=== PATIENT | female | born 1950 | race African-American/Black ===

== ENCOUNTER 2022-07-27 11:56 | Emergency (ER) | payer MEDICARE, MEDICAID ==
[~2022-07-27] VITALS: Ht 170.2 cm; Wt 68.0 kg
[2022-07-27 12:01] VITALS: BP 205/103
[2022-07-27] MEDS ORDERED: ASPIRIN 81MG TABLET PO ONE (12:15)
[2022-07-27 13:56] LABS: CHLORIDE 108 mEq/L (98-107)
[2022-07-27 13:59] LABS: BASOPHILS % 0.5 % (0.0-2.0); EOSINOPHILS % 0.9 % (0.0-5.0); HEMATOCRIT. 35.9 % (36.0-48.0); HEMOGLOBIN. 12.2 g/dL (12.0-16.0); LYMPHOCYTES % 29.4 % (20.0-50.0); MEAN CORPUSCULAR HEMOGLOBIN 32.1 pg (28.0-32.0); MEAN CORPUSCULAR VOLUME 94.8 fL (81.0-99.0); MEAN PLATELET VOLUME 7.7 fl (7.4-10.4); MONOCYTES % 7.3 % (2.0-8.0); NEUTROPHILS % 61.9 % (40.0-76.0); PLATELET 208 x1000/uL (130-400); RED BLOOD CELL COUNT 3.79 mill/uL (4.2-5.4); RED CELL DISTRIBUTION WIDTH 14.7 % (11.6-14.6)
== END 2022-07-27 15:50 | disposition left against medical advice (07) ==
LOC: ER 12:34
DX: I24.9 Acute ischemic heart disease, unspecified (principal); I10 Essential (primary) hypertension; I11.0 Hypertensive heart disease with heart failure; I50.9 Heart failure, unspecified; J45.909 Unspecified asthma, uncomplicated; Z98.890 Other specified postprocedural states
CPT/HCPCS: 36415; 71045; 80053; 83880; 84484; 85025; 93005; 99285

== ENCOUNTER → 2023-01-07 | Day surgery (SDC) | payer MEDICARE, OTHER ==
[~2023-01-07] VITALS: Ht 170.2 cm; Wt 77.6 kg
[~2023-01-07] MED LIST: ACETAMINOPHEN 325MG TABLET PO PRN; ATOR20TA65 PO; ATROPINE SULFATE 1MG/10ML SYR IV PRN; ATROV IH; BUDE6HFA IH; DIPHENHYDRAMINE 50MG/ML VIAL ONE; DOXA-15 PO; FAMOTIDINE 20MG/2ML VIAL IV ONE; FENTANYL CITRATE/PF 50MCG/ML 2ML VIAL ONE; FURO40TA5 PO; HEPARIN 1000 UNITS/ML 10ML ONE; HYDRALAZINE 20MG/ML VIAL ONE; IODIXANOL 320MG/ML 100 ML BOTTLE IV ONE; IPRA3AMP9 HHN; IPRA4AER IH; LIDOCAINE HCL 1% 20ML VIAL (Pyxis) INJ ONE; LOSA100T33 PO; LOSA50TA41 PO; METH-372 PO; METHYLPREDNISOLONE SOD SUCC 125MG/2ML (ACT-O-VIAL) ONE; MIDAZOLAM HCL 2 MG/2 ML VIAL ONE; NITR0.4T49 SL; OXYC-582 PO; RANO500T6 PO; RIVA20TA PO; VERAPAMIL HCL 2.5 MG/1 ML 2ML VIAL IV ONE
[2023-01-07 07:31] LABS: BASOPHILS % 0.9 % (0.0-2.0); EOSINOPHILS % 3.2 % (0.0-5.0); HEMATOCRIT. 37.3 % (36.0-48.0); HEMOGLOBIN. 12.4 g/dL (12.0-16.0); MEAN CORPUSCULAR HEMOGLOBIN 31.1 pg (28.0-32.0); MEAN CORPUSCULAR HGB CONC 33.3 g/dL (31.0-37.0); MEAN CORPUSCULAR VOLUME 93.4 fL (81.0-99.0); MEAN PLATELET VOLUME 7.9 fl (7.4-10.4); MONOCYTES % 8.5 % (2.0-8.0); NEUTROPHILS % 52.4 % (40.0-76.0); PLATELET 190 x1000/uL (130-400); RED BLOOD CELL COUNT 3.99 mill/uL (4.2-5.4); RED CELL DISTRIBUTION WIDTH 14.4 % (11.6-14.6); WHITE BLOOD COUNT 3.8 x1000/uL (4.5-11.0)
[2023-01-07 08:26] LABS: CALCIUM 8.3 mg/dL (8.5-10.1); CARBON DIOXIDE 31 mEq/L (21-32); CHLORIDE 108 mEq/L (98-107); GLUCOSE 87 mg/dL (70-105); POTASSIUM 3.7 mEq/L (3.5-5.1); SODIUM 141 mEq/L (136-145); UREA NITROGEN BLOOD 14 mg/dL (7-21)
== END | disposition home or self-care (01) ==
LOC: CCL 05:39
PROVIDERS: ATTEND Internal Medicine
DX: I25.110 Atherosclerotic heart disease of native coronary artery with unstable angina pectoris (principal); I27.21 Secondary pulmonary arterial hypertension; J44.9 Chronic obstructive pulmonary disease, unspecified; R94.39 Abnormal result of other cardiovascular function study; Z88.1 Allergy status to other antibiotic agents; Z91.013 Allergy to seafood; Z79.899 Other long term (current) drug therapy; Z98.890 Other specified postprocedural states
CPT/HCPCS: 80048; 85025; 36415; 93460; 93005; C1893; C1760 ×2; C1887 ×2; C1769; J3010; Q9967; J1200; J3490 ×3; J0360; J2930; J2250; J1644; Z7610 ×7; 99152; 99153; G0500

== ENCOUNTER 2025-02-10 20:53 | Inpatient (IN) | payer MEDICARE, MEDICAID ==
[~2025-02-10] VITALS: Ht 152.4 cm; Wt 91.7 kg
[~2025-02-10 20:53] MED LIST changes: -ACETAMINOPHEN 325MG TABLET PO PRN; -ATROPINE SULFATE 1MG/10ML SYR IV PRN; -DIPHENHYDRAMINE 50MG/ML VIAL ONE; -FAMOTIDINE 20MG/2ML VIAL IV ONE; -FENTANYL CITRATE/PF 50MCG/ML 2ML VIAL ONE; -HEPARIN 1000 UNITS/ML 10ML ONE; -HYDRALAZINE 20MG/ML VIAL ONE; -IODIXANOL 320MG/ML 100 ML BOTTLE IV ONE; -LIDOCAINE HCL 1% 20ML VIAL (Pyxis) INJ ONE; -METHYLPREDNISOLONE SOD SUCC 125MG/2ML (ACT-O-VIAL) ONE; -MIDAZOLAM HCL 2 MG/2 ML VIAL ONE; -VERAPAMIL HCL 2.5 MG/1 ML 2ML VIAL IV ONE
[2025-02-10 20:59] VITALS: RESP 21
[2025-02-10] MEDS: FUROSEMIDE 40MG/4ML VIAL IV ONE (21:16)
[2025-02-10] MEDS: NITROGLYCERIN 50MG PREMIX 250 ML IV ONE (21:26)
[2025-02-10 21:28] LABS: BASOPHILS % 0.7 % (0.0-2.0); EOSINOPHILS % 0.0 % (0.0-5.0); HEMATOCRIT. 41.7 % (36.0-48.0); HEMOGLOBIN. 13.8 g/dL (12.0-16.0); LYMPHOCYTES % 10.6 % (20.0-50.0); MEAN PLATELET VOLUME 7.9 fl (7.4-10.4); MONOCYTES % 2.3 % (2.0-8.0); NEUTROPHILS % 86.4 % (40.0-76.0); PLATELET 265 x1000/uL (130-400); RED BLOOD CELL COUNT 4.38 mill/uL (4.2-5.4); RED CELL DISTRIBUTION WIDTH 14.7 % (11.6-14.6)
[2025-02-10 21:40] LABS: TROPONIN I HIGH SENSITIVITY 11 ng/L (3.0-34)
[2025-02-10 21:41] LABS: CREATININE 1.1 mg/dL (0.6-1.0)
[2025-02-10 21:42] LABS: UREA NITROGEN BLOOD 17 mg/dL (9-23)
[2025-02-10 21:43] LABS: ASPARTATE AMINOTRANSFERASE 16 IU/L (<34); BILIRUBIN DIRECT < 0.1 mg/dL (<=3.0)
[2025-02-10 21:44] LABS: BILIRUBIN TOTAL 0.3 mg/dL (0.1-1.0); PROTEIN TOTAL 7.8 g/dL (6.0-8.3)
[2025-02-10] MEDS ORDERED: ALBUTEROL (0.083%) 2.5MG/3ML NEB HHN SCH (22:00)
[2025-02-10] MEDS ORDERED: IPRATROPIUM BROMIDE (0.02%) 0.5MG/2.5ML NEB HHN SCH (22:00)
[2025-02-10 22:06] LABS: BG BASE EXCESS -0.2 mmol/L (-2.0-3.0); BG CARBOXYHEMOGLOBIN 2.1 % (0.5-1.5); BG DEOXYHEMOGLOBIN 0.4 % (0.0-5.0); BG FRACTION INSPIRED OXYGEN 60; BG HCO3 ACT 25.3 mmol/L (21.0-28.0); BG METHEMOGLOBIN 0.0 % (0.5-1.5); BG OXYGEN SATURATION 99.6 % (94.0-98.0); BG OXYHEMOGLOBIN 97.5 % (94.0-98.0); BG PCO2 44.6 mmHg (32.0-45.0); BG PH 7.372 (7.350-7.450); BG PO2 225.4 mmHg (83.0-108.0); BG SAMPLE SITE RIGHT BRACHIAL; BG TOTAL HEMOGLOBIN 13.8 g/dL (12.0-16.0); BG VENT MODE MASK - BIPAP; BG VENT RATE 20.0 set
[2025-02-10] MEDS: PIPERACILLIN/TAZO 3.375G/50ML 50 ML IV ONE (22:06)
[2025-02-10] MEDS: SODIUM CHLORIDE 0.9% 250 ML IV ONE (22:30)
[2025-02-10] MEDS: DEXAMETHASONE 10 MG/ML VIAL IV ONE (22:31)
[2025-02-10] MEDS: VANCOMYCIN 1G PREMIX 200 ML IV ONE (22:31)
[2025-02-10] MEDS ORDERED: MAGNESIUM/ALUMINUM HYDROXIDE/SIMETHICONE 30ML UDC PO PRN (23:30)
[2025-02-10] MEDS ORDERED: HYDROCODONE/ACETAMINOPHEN 5/325MG TABLET PO PRN (23:30)
[2025-02-10] MEDS ORDERED: CLONIDINE 0.1MG TABLET PO PRN (23:30)
[2025-02-10] MEDS: ENALAPRIL 1.25MG/ML VIAL 1ML IV NR (23:30)
[2025-02-10] MEDS ORDERED: ONDANSETRON HCL 4MG/2ML INJ IV PRN (23:30)
[2025-02-10] MEDS ORDERED: DEXTROSE 50% WATER 50ML SYRINGE IV PRN (23:30)
[2025-02-10] MEDS ORDERED: AZITHROMYCIN 500MG/250ML 250 ML IV SCH (23:30)
[2025-02-11] VITALS (16 sets, daily range): BP systolic 103–160; BP diastolic 69–93; PULSE 65–92; RESP 12–24; TEMP 36.2–36.9184; O2SAT 98–100
[2025-02-11] MEDS ORDERED: CEFTRIAXONE 1GM/50ML 50 ML IV SCH
[2025-02-11 02:02] LABS: INR 0.9
[2025-02-11 02:13] LABS: TROPONIN I HIGH SENSITIVITY 56 ng/L (3.0-34)
[2025-02-11] MEDS: METHYLPREDNISOLONE SOD SUCC 40MG/ML (ACT-O-VIAL) IV SCH (02:48)
[2025-02-11] MEDS: AZITHROMYCIN 500MG/250ML 250 ML IV SCH (02:48)
[2025-02-11] MEDS: FUROSEMIDE 40MG/4ML VIAL IVP NR (02:49)
[2025-02-11 03:36] LABS: CLARITY URINE CLEAR (CLEAR); COLOR URINE YELLOW (YELLOW); GLUCOSE URINE NEGATIVE (NEGATIVE); KETONES URINE NEGATIVE (NEGATIVE); LEUKOCYTE ESTERASE URINE TRACE (NEGATIVE); NITRITE URINE NEGATIVE (NEGATIVE); OCCULT BLOOD URINE TRACE (NEGATIVE); PH URINE 5.5 (4.5-8.0); PROTEIN URINE NEGATIVE (NEGATIVE); SPECIFIC GRAVITY URINE 1.009 (1.005-1.030); UROBILINOGEN URINE 0.2 E.U./dL (0.2-1.0)
[2025-02-11 04:02] LABS: BACTERIA URINE TRACE; SQUAMOUS EPITHELIAL CELL URINE FEW /lpf (RARE/1+)
[2025-02-11] MEDS: IPRATROPIUM/ALBUTEROL 0.5-3(2.5)MG/3ML NEB NEB SCH (04:52)
[2025-02-11 05:25] LABS: *AMPHETAMINES SCREEN URINE NEGATIVE (NEGATIVE); *BARBITURATES SCREEN URINE NEGATIVE (NEGATIVE); *BENZODIAZEPINES SCREEN URINE NEGATIVE (NEGATIVE); *COCAINE SCREEN URINE NEGATIVE (NEGATIVE); CANNABINOID URINE SCREEN NEGATIVE (NEGATIVE); ECSTASY MDMA SCREEN URINE NEGATIVE (NEGATIVE); METHADONE URINE SCREEN NEGATIVE (NEGATIVE); OPIATES URINE SCREEN NEGATIVE (NEGATIVE); PHENCYCLIDINE URINE SCREEN NEGATIVE (NEGATIVE)
[2025-02-11] MEDS: CEFTRIAXONE 1GM/50ML 50 ML IV SCH (05:41)
[2025-02-11 06:20] LABS: HEMATOCRIT. 40.0 % (36.0-48.0); HEMOGLOBIN. 13.1 g/dL (12.0-16.0); MEAN PLATELET VOLUME 8.1 fl (7.4-10.4); PLATELET 229 x1000/uL (130-400); RED BLOOD CELL COUNT 4.17 mill/uL (4.2-5.4); RED CELL DISTRIBUTION WIDTH 14.8 % (11.6-14.6)
[2025-02-11 06:36] LABS: CREATININE 1.0 mg/dL (0.6-1.0)
[2025-02-11 06:37] LABS: UREA NITROGEN BLOOD 15 mg/dL (9-23)
[2025-02-11 07:05] LABS: TROPONIN I HIGH SENSITIVITY 59 ng/L (3.0-34)
[2025-02-11] MEDS: INSULIN LISPRO 100 UNITS/ML SUBCUT SCH (07:59)
[2025-02-11] MEDS: BLOOD SUGAR DIAGNOSTIC STRIP TEST SCH (07:59)
[2025-02-11] MEDS: DOXAZOSIN MESYLATE 4MG TABLET PO SCH (08:10)
[2025-02-11] MEDS: RANOLAZINE 500 MG TAB.SR.12H PO SCH (08:10)
[2025-02-11] MEDS: ENOXAPARIN 40MG/0.4ML SYR SUBCUT SCH (08:11)
[2025-02-11] MEDS: PANTOPRAZOLE SODIUM 40 MG/VIAL IV SCH (08:11)
[2025-02-11 08:52] LABS: TROPONIN I HIGH SENSITIVITY 55 ng/L (3.0-34)
[2025-02-11 11:16] LABS: LYMPHOCYTES % MANUAL 7.0 % (20.0-60.0); MONOCYTES % MANUAL 1.0 % (2.0-8.0); NEUTROPHILS % MANUAL 92.0 % (45.0-75.0); PLATELET ESTIMATE NORMAL
[2025-02-11] MEDS: ASPIRIN 81MG TABLET PO SCH (14:37)
[2025-02-11] MEDS: ENOXAPARIN 60MG/0.6ML SYR SUBCUT SCH (14:38)
[2025-02-11] MEDS: LOSARTAN 50 MG TABLET PO SCH (17:16)
[2025-02-11 19:23] LABS: TROPONIN I HIGH SENSITIVITY 26 ng/L (3.0-34)
[2025-02-11] MEDS: ATORVASTATIN CALCIUM 20MG TABLET PO SCH (21:55)
[2025-02-11] MEDS: ENOXAPARIN 100MG/ML SYR SUBCUT SCH (21:56)
[2025-02-11] MEDS: ZOLPIDEM TARTRATE 5MG TABLET PO PRN (23:45)
[2025-02-12] VITALS (15 sets, daily range): BP systolic 93–146; BP diastolic 58–95; PULSE 67–88; RESP 12–18; TEMP 36.2–36.9; O2SAT 92–100
[2025-02-12 07:56] LABS: HEMATOCRIT. 37.4 % (36.0-48.0); HEMOGLOBIN. 12.2 g/dL (12.0-16.0); MEAN PLATELET VOLUME 8.5 fl (7.4-10.4); PLATELET 219 x1000/uL (130-400); RED BLOOD CELL COUNT 3.96 mill/uL (4.2-5.4); RED CELL DISTRIBUTION WIDTH 14.7 % (11.6-14.6)
[2025-02-12 08:16] LABS: CREATININE 1.2 mg/dL (0.6-1.0); UREA NITROGEN BLOOD 26.0 mg/dL (9-23)
[2025-02-12] MEDS ORDERED: DIPHENHYDRAMINE 50MG/ML VIAL ONE ×3 (08:58→10:31)
[2025-02-12] MEDS ORDERED: MIDAZOLAM HCL 2 MG/2 ML VIAL ONE ×2 (08:58→10:31)
[2025-02-12] MEDS ORDERED: FENTANYL CITRATE/PF 50MCG/ML 2ML VIAL ONE ×2 (08:59→10:31)
[2025-02-12] MEDS ORDERED: HEPARIN 1000 UNITS/ML 10ML ONE ×3 (08:59→11:33)
[2025-02-12] MEDS ORDERED: METHYLPREDNISOLONE SOD SUCC 125MG/2ML (ACT-O-VIAL) ONE ×2 (09:03→09:08)
[2025-02-12] MEDS ORDERED: FAMOTIDINE 20MG/2ML VIAL IV ONE ×2 (09:03→09:41)
[2025-02-12] MEDS ORDERED: HYDRALAZINE 20MG/ML VIAL ONE (09:45)
[2025-02-12] MEDS ORDERED: LIDOCAINE HCL 1% 20ML VIAL ONE (10:31)
[2025-02-12] MEDS ORDERED: VERAPAMIL HCL 2.5 MG/1 ML 2ML VIAL IV ONE (10:31)
[2025-02-12] MEDS ORDERED: IODIXANOL 320MG/ML 100 ML BOTTLE IV ONE ×2 (10:32→11:30)
[2025-02-12] MEDS ORDERED: ACETAMINOPHEN 325MG TABLET PO PRN (11:00)
[2025-02-12] MEDS ORDERED: ATROPINE SULFATE 1MG/10ML SYR IV PRN (11:00)
[2025-02-12] MEDS: METHYLPREDNISOLONE SOD SUCC 40MG/ML (ACT-O-VIAL) IV SCH (17:12)
[2025-02-12] MEDS: MORPHINE SULFATE 4 MG/ML INJ (FOR IV/IM USE) IV PRN (18:03)
[2025-02-12 20:59] LABS: LYMPHOCYTES % MANUAL 5.0 % (20.0-60.0); MONOCYTES % MANUAL 4.0 % (2.0-8.0); NEUTROPHILS % MANUAL 91.0 % (45.0-75.0); PLATELET ESTIMATE NORMAL
[2025-02-12] MEDS: ENOXAPARIN 30MG/0.3ML SYR SUBCUT SCH (22:08)
[2025-02-12] MEDS: METHYLPREDNISOLONE SOD SUCC 125MG/2ML (ACT-O-VIAL) IV SCH (22:38)
[2025-02-12] MEDS: LACTULOSE 20G/30ML UDC PO SCH (23:47)
[2025-02-13] VITALS (13 sets, daily range): BP systolic 101–143; BP diastolic 52–114; PULSE 61–87; RESP 11–21; TEMP 36.3–36.6; O2SAT 94–100
[2025-02-13] MEDS: ACETAMINOPHEN 325MG TABLET PO PRN (04:55)
[2025-02-13 05:56] LABS: HEMATOCRIT. 38.2 % (36.0-48.0); HEMOGLOBIN. 12.5 g/dL (12.0-16.0); MEAN PLATELET VOLUME 7.9 fl (7.4-10.4); PLATELET 231 x1000/uL (130-400); RED BLOOD CELL COUNT 4.04 mill/uL (4.2-5.4); RED CELL DISTRIBUTION WIDTH 14.8 % (11.6-14.6)
[2025-02-13 06:19] LABS: CREATININE 1.2 mg/dL (0.6-1.0); UREA NITROGEN BLOOD 26.0 mg/dL (9-23)
[2025-02-13] MEDS ORDERED: METH4TAB95 MT (10:01)
[2025-02-13] MEDS ORDERED: ASPI-1160 PO (10:01)
[2025-02-13] MEDS ORDERED: IPRA3AMP9 HHN (10:01)
[2025-02-13] MEDS ORDERED: FURO40TA5 PO (10:01)
[2025-02-13] MEDS ORDERED: BUDE6HFA IH (10:01)
[2025-02-13 11:35] LABS: CREATININE 1.3 mg/dL (0.6-1.0); UREA NITROGEN BLOOD 26.0 mg/dL (9-23)
[2025-02-13 14:28] LABS: BAND% 1.0 % (1.0-6.0); LYMPHOCYTES % MANUAL 9.0 % (20.0-60.0); MONOCYTES % MANUAL 3.0 % (2.0-8.0); NEUTROPHILS % MANUAL 87.0 % (45.0-75.0); PLATELET ESTIMATE NORMAL
[2025-02-13] MEDS ORDERED: AZITHROMYCIN 500 MG TABLET PO SCH (21:00)
[2025-02-13] MEDS ORDERED: METHYLPREDNISOLONE SOD SUCC 40MG/ML (ACT-O-VIAL) IV SCH (21:00)
[2025-02-14] MEDS ORDERED: FAMOTIDINE 20MG/2ML VIAL IV SCH (09:00)
== END 2025-02-13 14:49 | disposition home or self-care (01) | DRG 189 ==
LOC: ER 20:53 → 5EST 22:34 → EDBEDREQSVC 22:38 → EDBEDREQ 22:38 → EDBEDREQTM 22:38 → ENRESERV 22:42
PROVIDERS: ADMIT Internal Medicine; ATTEND Internal Medicine
PROC: 5A09357 Assistance with Respiratory Ventilation, Less than 24 Consecutive Hours, Continuous Positive Airway Pressure (ICD-10-PCS; 2025-02-10)
PROC: B41FYZZ Fluoroscopy of Right Lower Extremity Arteries using Other Contrast (ICD-10-PCS; principal; 2025-02-12)
PROC: 4A023N7 Measurement of Cardiac Sampling and Pressure, Left Heart, Percutaneous Approach (ICD-10-PCS; 2025-02-12)
PROC: B211YZZ Fluoroscopy of Multiple Coronary Arteries using Other Contrast (ICD-10-PCS; 2025-02-12)
DX: J96.01 Acute respiratory failure with hypoxia (principal); I21.A1 Myocardial infarction type 2; I50.9 Heart failure, unspecified; N39.0 Urinary tract infection, site not specified; J44.1 Chronic obstructive pulmonary disease with (acute) exacerbation; I11.0 Hypertensive heart disease with heart failure; E11.9 Type 2 diabetes mellitus without complications; F17.210 Nicotine dependence, cigarettes, uncomplicated; I25.10 Atherosclerotic heart disease of native coronary artery without angina pectoris; Z88.2 Allergy status to sulfonamides; Z90.13 Acquired absence of bilateral breasts and nipples; Z85.3 Personal history of malignant neoplasm of breast; I25.2 Old myocardial infarction
CPT/HCPCS: 36415; 36600; 71045; 80048; 80076; 80305; 81003; 82375; 82805; 82962; 83605; 83735; 83880; 84145; 84443; 84484; 85025; 93005; 93306; 93458; 93970; 94070; 94640; 94660; 94664; 96365; 99291; 99292; C1769; C1887; C1893; J0360; J0456; J0696; J1100; J1200; J1308; J1644; J1650; J1815; J1938; J2003; J2250; J2270; J2470; J2543; J2919; J3010; J3373; J3490; J7050; Q9967